=== PATIENT | male | born 2000 | race Hispanic/Latino ===

== ENCOUNTER 2021-05-07 16:08 | Emergency (ER) | payer BC ==
[2021-05-07 17:13] LABS: Urine Blood Trace-intact (Negative); Urine Glucose Negative (Negative); Urine Protein Negative (Negative); Urine pH 6.5 (5.0-7.0)
[2021-05-07] MEDS ORDERED: ONDANSETRON 4 MG/2 ML VIAL ONE (17:32)
[2021-05-07] MEDS ORDERED: NA CHLORIDE 0.9% 1,000 ML ONE (17:32)
[2021-05-07] MEDS ORDERED: PANTOPRAZOLE 40 MG INJ ONE (17:32)
[2021-05-07 17:35] LABS: Absolute Lymphocytes (CBC) 2.4 K/uL (0.7-4.9); Basophils % 0.7 % (0-1.3); Hematocrit 42.7 % (39.6-49.0); Lymphocytes % 30.6 % (15.3-44.8); MPV 8.8 fL (7.6-11.3); RBC Red Blood Cell Count 4.74 M/uL (4.33-5.43)
[2021-05-07 17:52] LABS: ALT/SGPT 48 U/L (12-78); AST/SGOT 40 U/L (15-37); Albumin 4.4 g/dL (3.4-5.0); Alkaline Phosphatase 56 U/L (45-117); BUN Blood Urea Nitrogen 18 mg/dL (7-18); Bicarbonate 30 mmol/L (21-32); Bilirubin Direct 0.2 mg/dL (0-0.2); Bilirubin Total 1.3 mg/dL (0.2-1.0); Glucose Level 94 mg/dL (74-106); Lipase 92 U/L (73-393); Potassium 3.5 mmol/L (3.5-5.1); Protein, Total 8.1 g/dL (6.4-8.2); Sodium Level 138 mmol/L (136-145)
--- NOTE | 2021-05-07 18:18 | RAD REPORT ---
EXAM DESCRIPTION: RAD - Chest Single View - 05/07/2021 6:09 pm CLINICAL HISTORY: epigastric pain, nausea/vomiting COMPARISON: None TECHNIQUE: AP portable chest image was obtained 05/07/2021 6:09 pm . FINDINGS: Lungs are clear. Heart and vasculature are normal. No measurable pleural effusion and no p neumothorax. No acute bony abnormality seen. No acute aortic findings suspected. IMPRESSION: No acute cardiopulmonary process.
--- NOTE | 2021-05-07 19:08 | RAD REPORT ---
EXAM DESCRIPTION: US - Abdomen Exam Limited - 05/07/2021 7:00 pm CLINICAL HISTORY: EPIGASTRIC PAIN COMPARISON: No comparisons FINDINGS: Gallbladder size is normal. No gallstones or sludge identifiable. There is a solitary less than 2 mm nonshadowing echogenic focus near the neck that is favored to be small polyp rather than n onshadowing stone or tumefactive sludge. There is no wall thickening or pericholecystic fluid. No common duct stone or biliary tree dilatation identified. IMPRESSION: Small less than 2 mm gallbladder polyp is evident with no stones or sludge confirmed. No other gallbladder or biliary tree finding.
--- NOTE | 2021-05-07 19:37 | EDPHYS ---
Physician Documentation [facility] Name: Bonilla Mejia Age: 20 yrs Sex: Male : 2000 Arrival Date: 05/07/2021 Time: 16:13 Bed 28 Private MD: ED Physician Piero Rivera HPI: 05/07 17:02 This 20 yrs old Male presents to ER via Ambulatory with complaints of Vomiting.cp 17:02 The patient presents to the emergency department with nausea, that is moderate, cp vomiting, that is intermittent, 3 times today, abdominal pain, of the epigastric area, described as achy, and does not radiate. Onset: The symptoms/episode began/occurred today. Possible causes: unknown. Associated signs and symptoms: Pertinent positives: vomiting small amount of blood, Pertinent negatives: constipation, diarrhea, fever. Severity of symptoms: in the emergency department the symptoms are unchanged despite home interventions. Historical: - Allergies: 16:33 No Known Allergies; vg1 - Home Meds: 16:33 None [Active]; vg1 - PMHx: 16:33 None; vg1 - PSHx: 16:33 None; vg1 - Immunization history:: Adult Immunizations up to date, Client reports having NOT received the Covid vaccine. - Social history:: Smoking status: Reported history of juuling and/or vaping. ROS: 17:05 Abdomen/GI: Positive for abdominal pain, nausea and vomiting. cp 17:05 Eyes: Negative for injury, pain, redness, and discharge. cp 17:05 Constitutional: Negative for body aches, chills, fever. 17:05 ENT: Negative for drainage from ear(s), ear pain, sore throat, difficulty swallowing, difficulty handling secretions. 17:05 Cardiovascular: Negative for chest pain, palpitations. 17:05 Respiratory: Negative for cough, shortness of breath, wheezing. 17:05 Back: Negative for radiated pain. 17:05 : Negative for urinary symptoms. 17:05 Neuro: Positive for headache, Negative for altered mental status, syncope, weakness. 17:05 All other systems are negative. Exam: 17:10 Constitutional: The patient appears in no acute distress, alert, awake, non-toxic, well cp developed, well nourished. 17:10 Head/Face: Normocephalic, atraumatic. cp 17:10 Eyes: Periorbital structures: appear normal, Conjunctiva: normal, no exudate, no injection, Sclera: no appreciated abnormality, Lids and lashes: appear normal, bilaterally. 17:10 ENT: External ear(s): are unremarkable, Nose: is normal, Mouth: Lips: moist, Oral mucosa: pink and intact, moist, Posterior pharynx: Airway: no evidence of obstruction, patent. 17:10 Neck: ROM/movement: is normal, is supple, without pain, no range of motions limitations. 17:10 Chest/axilla: Inspection: normal, Palpation: is normal, no crepitus, no tenderness. 17:10 Cardiovascular: Rate: bradycardic, Rhythm: regular. 17:10 Respiratory: the patient does not display signs of respiratory distress, Respirations: normal, no use of accessory muscles, labored breathing, is not present, Breath sounds: are clear throughout, no decreased breath sounds, no stridor, no wheezing. 17:10 Abdomen/GI: Inspection: abdomen appears normal, Bowel sounds: active, all quadrants, Palpation: soft, in all quadrants, mild abdominal tenderness, in the epigastric area, rebound tenderness, is not appreciated, involuntary guarding, is not appreciated. 17:10 Back: pain, is absent, ROM is normal. 17:10 Neuro: Orientation: to person, place \T\ time. Mentation: is normal, Motor: moves all fours, strength is normal, Sensation: is normal. Vital Signs: 16:31 BP 130 / 80; Pulse 46; Resp 12; Temp 98.2(O); Pulse Ox 100% ; Weight 72.57 kg; Height 5 vg1 ft. 7 in. (170.18 cm); Pain 3/10; 18:00 BP 124 / 75; Pulse 42; Resp 18; Pulse Ox 100% on R/A; Pain 2/10; tr6 19:49 BP 120 / 72; Pulse 48; Resp 16; Temp 98.7(O); Pulse Ox 100% on R/A; Pain 0/10; kc4 16:31 Body Mass Index 25.06 (72.57 kg, 170.18 cm) vg1 MDM: 16:47 Patient medically screened. cp 17:15 Differential diagnosis: gastritis, cholecystitis, pancreatitis, appendicitis, viral cp gastroenteritis, gastroenteritis. 19:35 Data reviewed: vital signs, nurses notes, lab test result(s), radiologic studies, cp ultrasound. 19:35 Counseling: I had a detailed discussion with the patient and/or guardian regarding: the cp historical points, exam findings, and any diagnostic results supporting the discharge/admit diagnosis, lab results, radiology results, to return to the emergency department if symptoms worsen or persist or if there are any questions or concerns that arise at home. Response to treatment: the patient's symptoms have markedly improved after treatment, patient is well hydrated. VSS. Nausea improved and vomiting resolved. Will discharge to home for continued monitoring. 05/07 16:48 Order name: Basic Metabolic Panel; Complete Time: 18:50 cp 05/07 16:48 Order name: CBC with Diff; Complete Time: 17:40 cp 05/07 17:40 Interpretation: Reviewed. 05/07 16:48 Order name: Hepatic Function; Complete Time: 18:50 cp 05/07 18:51 Interpretation: Normal except: AST 40; BILIT 1.3; GLOB 3.7. cp 05/07 16:48 Order name: Lipase; Complete Time: 18:50 cp 05/07 17:13 Order name: Urine Dipstick-Ancillary EDMS 05/07 17:41 Order name: US Abdomen Limited; Complete Time: 19:11 cp 05/07 19:11 Interpretation: Report reviewed. 05/07 16:48 Order name: IV Saline Lock; Complete Time: 17:14 cp 05/07 16:48 Order name: Labs collected and sent; Complete Time: 17:14 cp 05/07 16:48 Order name: Urine Dipstick-Ancillary (obtain specimen); Complete Time: 17:13 cp 05/07 17:41 Order name: XRAY Chest (1 view); Complete Time: 18:50 cp 05/07 19:11 Order name: PO challenge; Complete Time: 20:04 cp Administered Medications: 17:30 Drug: NS 0.9% 1000 ml Route: IV; Rate: 1 bolus; Site: left forearm; tr6 18:16 Follow up: Response: No adverse reaction; IV Status: Completed infusion; IV converted tr6 to saline lock; IV Intake: 1000ml 20:05 Follow up: Response: No adverse reaction; IV Status: Completed infusion kc4 17:30 Drug: Zofran (Ondansetron) 4 mg Route: IVP; Site: left forearm; tr6 18:16 Follow up: Response: No adverse reaction tr6 20:04 Follow up: Response: No adverse reaction kc4 17:30 Drug: ProTONIX (pantoprazole) 40 mg Route: IVP; Site: left forearm; tr6 18:16 Follow up: Response: No adverse reaction tr6 20:04 Follow up: Response: No adverse reaction kc4 Disposition Summary: 05/07/21 19:37 Discharge Ordered Location: Home cp Problem: new cp Symptoms: have improved cp Condition: Stable cp Diagnosis - Epigastric pain cp - Nausea with vomiting, unspecified cp Followup: cp - With: Private Physician - When: 2 - 3 days - Reason: Recheck today's complaints Discharge Instructions: - Discharge Summary Sheet cp - Gastritis, Adult cp - Nausea and Vomiting, Adult cp Forms: - Medication Reconciliation Form cp - Thank You Letter cp - Antibiotic Education cp - Prescription Opioid Use cp Prescriptions: - Protonix 40 mg Oral tablet,delayed release (DR/EC) - take 1 tablet by ORAL route once daily As needed; 30 tablet; Refills: 0, cp Product Selection Permitted - Zofran 4 mg Oral Tablet - take 1 tablet by ORAL route every 12 hours As needed; 20 tablet; Refills: 0, cp Product Selection Permitted Addendum: 05/11/2021 00:05 Co-signature as Attending Physician, Piero Rivera MD I agree with the assessment and r n plan of care. Attestation: The patient's history, exam findings, diagnostics, and a summary of any interventions or procedures was reviewed in detail with Alber FUNG. Signatures: Dispatcher [employer] Piero Penny MD MD rn Page, Corey, PA PA cp Garcia, Victoria RN RN vg1 Brittany Camacho RN RN tr6 Rosa Germain kc4 Corrections: (The following items were deleted from the chart) 05/08 15:56 05/07 17:05 Neuro: Negative for altered mental status, headache, syncope, weakness, cp cp 05/08 15:59 05/07 17:00 Differential diagnosis: gastritis, cholecystitis, pancreatitis, cp appendicitis, viral gastroenteritis, gastroenteritis, cp
--- NOTE | 2021-05-07 19:37 | ER ---
Nurse's Notes [facility] Name: Bonilla Mejia Age: 20 yrs Sex: Male : 2000 Arrival Date: 05/07/2021 Time: 16:13 Bed 28 Private MD: Diagnosis: Epigastric pain;Nausea with vomiting, unspecified Presentation: 05/07 16:31 Chief complaint: Patient states: Stated had a sudden onset of Vomiting today and vg1 vomited 3x; states fatigue, nausea, ABD pain and headache. Coronavirus screen: Vaccine status: Patient reports being unvaccinated. Client presents with at least one sign or symptom that may indicate coronavirus-19. Standard/surgical mask placed on the client. Ebola Screen: Patient negative for fever greater than or equal to 101.5 degrees Fahrenheit, and additional compatible Ebola Virus Disease symptoms. Initial Sepsis Screen: Does the patient meet any 2 criteria? No. Patient's initial sepsis screen is negative. Does the patient have a suspected source of infection? No. Patient's initial sepsis screen is negative. Risk Assessment: Do you want to hurt yourself or someone else? Patient reports no desire to harm self or others. Onset of symptoms was May 07, 2021. 16:31 Method Of Arrival: Ambulatory vg1 16:31 Acuity: KYRIE 3 vg1 20:00 Note Pts ship [facility] called for an update. per pt ok for this RN to give Dx information kc4 over the phone to K[facility] Allen. 20:03 Note Pt ready for discharge. IV removed, S/S improved. all belongings accounted for. kc4 Triage Assessment: 16:33 General: Appears in no apparent distress. uncomfortable, Behavior is calm, cooperative. vg1 Pain: Complains of pain in epigastric area. GI: Reports epigastric pain, nausea, vomiting. Historical: - Allergies: 16:33 No Known Allergies; vg1 - Home Meds: 16:33 None [Active]; vg1 - PMHx: 16:33 None; vg1 - PSHx: 16:33 None; vg1 - Immunization history:: Adult Immunizations up to date, Client reports having NOT received the Covid vaccine. - Social history:: Smoking status: Reported history of juuling and/or vaping. Screenin:16 Abuse screen: Denies threats or abuse. Denies injuries from another. Nutritional tr6 screening: No deficits noted. Tuberculosis screening: No symptoms or risk factors identified. Fall Risk None identified. Assessment: 17:00 General: Appears in no apparent distress. comfortable, Behavior is calm, cooperative, tr6 appropriate for age. Pain: Complains of pain in b/l eye, epigastric area. Neuro: No deficits noted. Cardiovascular: No deficits noted. Respiratory: No deficits noted. GI: Abdomen is flat, Abdomen is tender to palpation in epigastric area. : No deficits noted. EENT: Reports pain in right eye and left eye. Derm: No deficits noted. Musculoskeletal: No deficits noted. 18:15 Reassessment: bedside US. tr6 18:30 Reassessment: Patient states symptoms have improved. tr6 19:50 Reassessment: Patient is alert, oriented x 3, equal unlabored respirations, skin kc4 warm/dry/pink. General: Appears in no apparent distress. comfortable, Behavior is calm, cooperative, appropriate for age. Pain: Complains of pain in epigastric area Pain does not radiate. Pain currently is 2 out of 10 on a pain scale. Quality of pain is described as shooting, throbbing. Neuro: No deficits noted. Cardiovascular: No deficits noted. Respiratory: No deficits noted. GI: Abdomen is flat, Abdomen is tender to palpation in epigastric area. Vital Signs: 16:31 BP 130 / 80; Pulse 46; Resp 12; Temp 98.2(O); Pulse Ox 100% ; Weight 72.57 kg; Height 5 vg1 ft. 7 in. (170.18 cm); Pain 3/10; 18:00 BP 124 / 75; Pulse 42; Resp 18; Pulse Ox 100% on R/A; Pain 2/10; tr6 19:49 BP 120 / 72; Pulse 48; Resp 16; Temp 98.7(O); Pulse Ox 100% on R/A; Pain 0/10; kc4 16:31 Body Mass Index 25.06 (72.57 kg, 170.18 cm) vg1 ED Course: 16:13 Patient arrived in ED. mr 16:33 Triage completed. vg1 16:33 Arm band placed on. vg1 16:34 Brittany Camacho RN is Primary Nurse. tr6 16:37 Alber Diop PA is PHCP. cp 16:37 Piero Rivera MD is Attending Physician. cp 18:09 XRAY Chest (1 view) In Process Unspecified. EDMS 18:16 Patient has correct armband on for positive identification. Bed in low position. Call tr6 light in reach. 18:16 No provider procedures requiring assistance completed. tr6 19:00 US Abdomen Limited In Process Unspecified. EDMS 19:50 IV discontinued, intact, bleeding controlled, No redness/swelling at site. Pressure kc4 dressing applied. Administered Medications: 17:30 Drug: NS 0.9% 1000 ml Route: IV; Rate: 1 bolus; Site: left forearm; tr6 18:16 Follow up: Response: No adverse reaction; IV Status: Completed infusion; IV converted tr6 to saline lock; IV Intake: 1000ml 20:05 Follow up: Response: No adverse reaction; IV Status: Completed infusion kc4 17:30 Drug: Zofran (Ondansetron) 4 mg Route: IVP; Site: left forearm; tr6 18:16 Follow up: Response: No adverse reaction tr6 20:04 Follow up: Response: No adverse reaction kc4 17:30 Drug: ProTONIX (pantoprazole) 40 mg Route: IVP; Site: left forearm; tr6 18:16 Follow up: Response: No adverse reaction tr6 20:04 Follow up: Response: No adverse reaction kc4 Intake: 18:16 IV: 1000ml; Total: 1000ml. tr6 Outcome: 19:37 Discharge ordered by MD. cp 19:50 Discharged to home ambulatory. kc4 19:50 Condition: improved 19:50 Discharge instructions given to patient, Instructed on discharge instructions, follow up and referral plans. medication usage, Demonstrated understanding of instructions, follow-up care, medications, Prescriptions given X 2. 20:05 Patient left the ED. kc4 Signatures: Dispatcher [employer] EDIA Peggy Mejia mr Alber Diop PA PA cp Garcia, Victoria, RN RN vg1 Brittany Camacho RN RN tr6 Rosa Germain kc4
[2021-05-07 20:25] VITALS: O2SAT 100
[2021-05-07 20:28] VITALS: BP 120/72; TEMP 98.7
== END 2021-05-07 20:05 | disposition home or self-care (01) ==
LOC: ER 16:08
DX: R11.2 Nausea with vomiting, unspecified (principal); R10.13 Epigastric pain; Z87.891 Personal history of nicotine dependence
CPT/HCPCS: 96361; 85025; 80048; 36415; 80076; 81003; 83690; 71045; 76705; 96375; 96374; 99283; C9113; J7030; J2405